=== PATIENT | male | born 1975 | race Caucasian/White ===

== ENCOUNTER 2019-05-06 15:53 | Outpatient (REF) | payer BC, SELFPAY ==
[2019-05-08 11:42] LABS: Lyme Ab w Rflx to Lyme Confirm Negative (Negative)
== END 2019-05-06 16:13 ==
LOC: NCHCN 15:53
PROVIDERS: PCP Registered Nurse; Visit Provider Registered Nurse
DX: H91.20 Sudden idiopathic hearing loss, unspecified ear (principal); Z11.8 Encounter for screening for other infectious and parasitic diseases
CPT/HCPCS: 86618

== ENCOUNTER 2022-11-03 19:32 | Outpatient (REF) | payer BC, SELFPAY ==
[2022-11-03 17:18] LABS: HCT 46.6 % (40.0-50.0); HGB 15.7 g/dL (13.5-17.5); MCH 31.2 pg (27.0-33.0); MCHC 33.7 % (32.0-36.0); MCV 93 fL (80-95); Platelet Count 271 10^3/uL (130-400); RBC 5.04 10^6/uL (4.36-5.78); RDW 12.8 % (11.8-14.1); RDW-SD 43.8 fL; WBC 6.64 10^3/uL (4.4-10.8)
[2022-11-03 17:47] LABS: ALT 38 U/L (16-63); AST 21 U/L (15-37); Alkaline Phosphatase 73 U/L (46-116); BUN 13 mg/dL (7-18); Bilirubin, Total 0.5 mg/dL (0.2-1.0); Calcium 9.1 mg/dL (8.5-10.1); Calculated LDL 147 mg/dL (<100); Chloride 106 mmol/L (98-107); Cholesterol 224 mg/dL (<200); Estimated GFR 93.42 (mL/min/1.73m2); Glucose 107 mg/dL (74-106); HDL Cholesterol 60 mg/dL (40-60); Potassium 4.3 mmol/L (3.5-5.1); Sodium 140 mmol/L (136-145); TSH 2.26 uIU/mL (0.36-3.74); Total Protein 7.9 g/dL (6.4-8.2); Triglyceride 88 mg/dL (<150)
[2022-11-03 18:38] LABS: Hemoglobin A1C 5.4 % (<5.7)
== END 2022-11-03 19:33 | disposition home or self-care (01) ==
LOC: NCHCN 19:32
PROVIDERS: PCP Registered Nurse; Visit Provider Registered Nurse
DX: Z00.00 Encounter for general adult medical examination without abnormal findings (principal); Z77.118 Contact with and (suspected) exposure to other environmental pollution
CPT/HCPCS: 80053; 80061; 85027; 83036; 84443

== ENCOUNTER 2022-11-18 19:04 | Outpatient (REF) | payer BC, SELFPAY ==
[2022-11-18 15:03] LABS: Anion Gap 7.9 mmol/L (3-11); BUN 18 mg/dL (7-18); CO2 28.1 mmol/L (21.0-32.0); CREATININE 0.9 mg/dL (0.70-1.30); Chloride 104 mmol/L (98-107); Estimated GFR 106.01 (mL/min/1.73m2); Glucose 101 mg/dL (74-106); Potassium 4.1 mmol/L (3.5-5.1); Sodium 140 mmol/L (136-145)
[2022-11-20 10:27] LABS: HIV-1/2 Ag & Ab Screen Negative (Negative)
[2022-11-21 10:02] LABS: Hepatitis C Ab w Rflx HCV PCR Negative (Negative)
== END 2022-11-18 19:05 | disposition home or self-care (01) ==
LOC: NCHCN 19:04
PROVIDERS: PCP Registered Nurse; Visit Provider Registered Nurse
DX: I10 Essential (primary) hypertension (principal); Z11.4 Encounter for screening for human immunodeficiency virus [HIV]; Z11.59 Encounter for screening for other viral diseases
CPT/HCPCS: 80048; 86803; 87389

== ENCOUNTER 2024-02-20 17:51 | Outpatient (REF) | payer BC, SELFPAY ==
--- OUTSIDE RECORDS SUMMARY | 2024-02-20 17:54 | XMS_ITS | Clinical Summary ---
Author Organization [facility] Address [address] [place] [address] Care Team Providers Care Registered Nurse Nursery Name Role Phone Unavailable Primary Care Provider Unavailabl e Social History Tobacco Use Types Packs/Day Years Used Date Smoking Tobacco: Never Assessed Sex and Gender Information Value Date Recorded Sex Assigned at Not on file Legal Sex Male 18:17 EST Gender Identity Not on file Sexual Orientation Not on file Plan of Treatment Health Maintenance Due Date Last Done Comments Hepatitis B Vaccine (1 of - 19+ 3-dose series) 07/29 COVID-19 Vaccine ( season) 2023 Hepatitis C Screen Completed 11/18/2022 Procedures Procedure Name Priority Date/Time Associated Diagnosis Comments HEPATITIS C AB W REFLEX TO HCV RNA BY PCR Routine 11/18/2022 10:25 EDT from Last 3 Months or Most Recently Relevant to Health Maintenance Results * HEPATITIS C AB W REFLEX TO HCV RNA BY PCR (11/18/2022 10:25 EDT) Hep C Antibody Negative Negative 11/21/2022 9:57 EDT [facility] Blood VENOUS BLOOD / Unknown 11/18/2022 10:25 EDT 11/18/2022 21:50 EDT us Provider Outr Resulting Lab CHEMISTRY & BLOOD GA S ORDERABLES Final Result [facility] [address] [place] [address] from Last 3 Months or Most Recently Relevant to Health Maintenance
--- OUTSIDE RECORDS SUMMARY | 2024-02-20 17:54 | XMS_ITS | Encounter Summary ---
Author Organization [facility] Address [address] [place] [address] Care Team Providers Care Coupon And Bond Collection Clerk Name Role Phone Unavailable Primary Care Provider Unavailabl e Encounter Details Date Type Department Care Team (Late st Contact Info) Description 11/18/2022 Lab Requisition [facility] Pathology & Laboratory Medicine - [address] [address] Outr Resulting Lab, Provider Social History Tobacco Use Types Packs/Day Years Used Date Smoking Tobacco: Never Assessed Sex and Gender Information Value Date Recorded Sex Assigned at Not on file Legal Sex Male 18:17 EST Gender Identity Not on file Sexual Orientation Not on file documented as of this encounter Plan of Treatment Not on file documented as of this encounter Procedures Procedure Name Priority Date/Time Associated Diagnosis Comments HIV 1/2 ANTIGEN AND ANTIBODY, 4TH GENERATION Routine 11/18/2022 10:25 EDT documented in this encounter Results * HIV 1/2 ANTIGEN AND ANTIBODY, 4TH GENERATION (11/18/2022 10:25 EDT) HIV 1 and 2 Antibody/p24 Antigen, 4th Generation Negative Negative 11/20/2022 10:23 EDT [facility] Comment:If acute HIV-1 infec tion is suspected in a high risk patient, submit plasma specimen for HIV-1 RNA quantitation test. Blood VENOUS BLOOD / Unknown 11/18/2022 10:25 EDT 11/18/2022 21:50 EDT Narrative [facility] - 11/20/2022 10:23 EDT Fourth Generation assay performed on the Siemens Centaur XPT. us Provider Outr Resulting Lab IMMUNOLOGY AND SEROL OGY ORDERABLES Final Result [facility] [address] [place] [address] documented in this encounter Visit Diagnoses Not on filedocumented in this encounter
--- OUTSIDE RECORDS SUMMARY | 2024-02-20 17:54 | XMS_ITS | Encounter Summary ---
Author Organization [facility] Address [address] [place] [address] Care Team Providers Care New Grad Rn Name Role Phone Unavailable Primary Care Provider Unavailabl e Encounter Details Date Type Department Care Team (Late st Contact Info) Description 05/07/2019 Lab Requisition [facility] Pathology & Laboratory Medicine - [address] [address] Unknown, Provider, Social History Tobacco Use Types Packs/Day Years [...] Procedure Name Priority Date/Time Associated Diagnosis Comments LYME AB Routine 05/06/2019 13:55 EST documented in this encounter Results * LYME AB (05/06/2019 13:55 EST) Lyme Ab Negative Negative 05/08/2019 11:37 EST [facility] Blood VENOUS BLOOD / Unknown 05/06/2019 13:55 EST 05/07/2019 17:07 EST us Provider Unknown IMMUNOLOGY AND SEROLOGY FAIZA MAYES Final Result [facility] [address] [place] [address] documented in this encounter Visit Diagnoses Not on filedocumented in this encounter
--- OUTSIDE RECORDS SUMMARY | 2024-02-20 17:54 | XMS_ITS | Encounter Summary ---
Author Organization [facility] Address [address] [place] [address] Care Team Providers Care Supervisor Taping Name Role Phone Unavailable Primary Care Provider Unavailabl e Encounter Details Date Type Department Care Team (Late st Contact Info) Description 11/18/2022 Lab Requisition [facility] Pathology & Laboratory Medicine - [facility] [address] [place] [address] Outr Resulting Lab, Provider Social History Tobacco [...] RNA BY PCR Routine 11/18/2022 10:25 EDT documented in this encounter Results * HEPATITIS C AB W REFLEX TO HCV RNA BY PCR (11/18/2022 10:25 EDT) Hep C Antibody Negative Negative 11/21/2022 9:57 EDT [facility] Blood VENOUS BLOOD / Unknown 11/18/2022 10:25 EDT 11/18/2022 21:50 EDT us Provider Outr Resulting Lab CHEMISTRY & BLOOD GA S ORDERABLES Final Result [facility] [address] [place] [address] documented in this encounter Visit Diagnoses Not on filedocumented in this encounter
--- OUTSIDE RECORDS SUMMARY | 2024-02-20 17:54 | XMS_ITS ---
Author Organization Unknown Address [address] [place] [phone] Phone Care Team Providers Care Phosphatic Fertilizer Supervisor Name Role Phone GANESH Serrano Attending Unavailable EDAHAWA RAMYA Roblero Primary Unavailable Social History Type Status Start Date End Date Code Code Syst em Smoking History Never smoker (Never Smoked) 065990118 SNOMED CT Sex Male Vital Signs Vital Sign Value Unit Terrell Value Terrell Unit Date/Time Recent/Initial? Code Code System Systolic Blood Pressure 111 mm[Hg] 10/24/2023 09:43 Initial 8480-6 INC Diastolic Blood Pressure 69 mm[Hg] 10/24/2023 09:43 Initial 8462-4 [facility] O2 Saturation 98 % 2023 09:43 Initial 19761- 5 [facility] Pulse 51.0 /min 10/24/2023 09:43 Initial 8867-4 [facility] Respiration 15 /min 10/24/19 09:43 Initial 9279-1 INC Temperature 36.2 Dipti 97.2 F 10/24/19 24 09:43 Initial 8310-5 [facility] Hospital Discharge Instructions Should you have any questions prior to discharge, please contact a member of your healthcare team. If you have left the hospital and have any questions, please contact your primary care physician. Reason For Referral No Data Found Procedures Procedure Name Date Status Code Code Syste m Colsc Flx w/Rmvl Of Tumor Po lyp Lesion Snare Tq 10/24/2023 completed 24929 CPT Colonoscopy, Flexible, Proxi mal To Splenic Flexure; w/Bx, Single/Multiple 10/24/2023 completed 23316 C PT Plan of Treatment No Data Found Encounters Encounter Diagnosis Start Date Code Code Sys tem Encounter for screening for malignant neoplasm of colo n 10/24/2023 SNOMED-CT Personal Care Team Section Performer Name Performer Role Active Date Inactive Da te Laboratory Narrative Notes
--- OUTSIDE RECORDS SUMMARY | 2024-02-20 17:54 | XMS_ITS | Referral Summary ---
Author Organization [facility] Address [address] [place] [id number] Care Team Providers Care [employer] Social Worker Name Role Phone Unavailable Primary Care Provider Unavailabl e Social History Tobacco Use Types Packs/Day Years Used Date Smoking Tobacco: Never Assessed Sex and Gender Information Value Date Recorded Sex Assigned at Not on file Legal Sex Male 18:17 EST Gender Identity Not on file Sexual Orientation Not on file Plan of Treatment Not on file Procedures Procedure Name Priority Date/Time Associated Diagnosis Comments HEPATITIS C AB W REFLEX TO HCV RNA BY PCR Routine 11/18/2022 10:25 EDT from Last 3 Months or Most Recently Relevant to Health Maintenance Results * HEPATITIS C AB W REFLEX TO HCV RNA BY PCR (11/18/2022 10:25 EDT) Hep C Antibody Negative Negative 11/21/2022 9:57 EDT [facility] Blood VENOUS BLOOD / Unknown 11/18/2022 10:25 EDT 11/18/2022 21:50 EDT us Provider Outr Resulting Lab CHEMISTRY & BLOOD GA S ORDERABLES Final Result [facility] [address] [place] [address] from Last 3 Months or Most Recently Relevant to Health Maintenance
--- OUTSIDE RECORDS SUMMARY | 2024-02-20 17:55 | XMS_ITS ---
Author Organization Unknown Address [address] [place] [phone] Phone Care Team Providers Care Core Inserter Name Role Phone GANESH Serrano Attending Unavailable Social History Type Status Start Date End Date Code Code Syst em Smoking History Never smoker (Never Smoked) 959623896 SNOMED CT Sex Male Hospital Discharge Instructions Should you have any questions prior to discharge, please contact a member of your healthcare team. If you have left the hospital and have any questions, please contact your primary care physician. Reason For Referral No Data Found Plan of Treatment No Data Found Encounters Encounter Diagnosis Start Date Code Code Sys tem Screening for malignant neoplasm of colon 10/24/2023 [id number] SNOMED-CT Personal Care Team Section Performer Name Performer Role Active Date Inactive Da te
[2024-02-20 21:40] LABS: ALT 33 U/L (16-63); AST 24 U/L (15-37); Alkaline Phosphatase 75 U/L (46-116); Anion Gap 10.3 mmol/L (3-11); BUN 15 mg/dL (7-18); Bilirubin, Total 0.35 mg/dL (0.2-1.0); CO2 24.7 mmol/L (21.0-32.0); CREATININE 1.1 mg/dL (0.70-1.30); Calcium 9.1 mg/dL (8.5-10.1); Calculated LDL 116 mg/dL (<100); Chloride 107 mmol/L (98-107); Cholesterol 223 mg/dL (<200); Estimated GFR 82.81 (mL/min/1.73m2); Glucose 100 mg/dL (74-106); HDL Cholesterol 73 mg/dL (40-60); Sodium 142 mmol/L (136-145); Total Protein 7.8 g/dL (6.4-8.2); Triglyceride 170 mg/dL (<150)
[2024-02-20 21:46] LABS: Hemoglobin A1C 5.2 % (<5.7)
== END 2024-02-20 17:52 | disposition home or self-care (01) ==
LOC: NCHCN 17:51
PROVIDERS: PCP Registered Nurse; Visit Provider Nurse Practitioner Family
DX: I10 Essential (primary) hypertension (principal); R73.9 Hyperglycemia, unspecified; Z13.220 Encounter for screening for lipoid disorders
CPT/HCPCS: 80053; 80061; 83036

== ENCOUNTER 2025-03-04 14:13 | Outpatient (REF) | payer BC, SELFPAY ==
[2025-03-04 15:33] LABS: ALT 34 U/L (10-49); AST 24 U/L (<34); Albumin 4.6 g/dL (3.2-5.0); Alkaline Phosphatase 61 U/L (46-116); Anion Gap 9.4 mmol/L (3-11); BUN 13 mg/dL (9-23); Bilirubin, Total 0.70 mg/dL (0.2-1.2); CO2 25.6 mmol/L (20.0-31.0); Calcium 9.5 mg/dL (8.3-10.6); Chloride 104 mmol/L (98-107); Glucose 91 mg/dL (74-106); Potassium 3.8 mmol/L (3.5-5.1); Sodium 139 mmol/L (136-145); Total Protein 8.0 g/dL (5.7-8.2)
[2025-03-04 23:10] LABS: PSA, Screening 0.6 ng/mL (<=2.5)
== END 2025-03-04 14:14 | disposition home or self-care (01) ==
LOC: NCHCN 14:13
PROVIDERS: PCP Registered Nurse; Visit Provider Nurse Practitioner Family
DX: Z12.5 Encounter for screening for malignant neoplasm of prostate (principal); I10 Essential (primary) hypertension
CPT/HCPCS: 80053; 84153; 82043; 82570